=== PATIENT | female | born 1970 | race Caucasian/White ===

== ENCOUNTER 2018-11-29 17:00 | Emergency (ER) | payer OTHER ==
[~2018-11-29] VITALS: Ht 160 cm; Wt 90.0 kg
[~2018-11-29 17:00] MED LIST: CEPH-443 PO; IBUP-1542 PO; SULF1TAB31 PO
[2018-11-29 17:02] VITALS: Ht 160 cm; Wt 90.0 kg
[2018-11-29 19:00] VITALS: BP 139/83; PULSE 68; RESP 18
== END 2018-11-29 19:01 | disposition home or self-care (01) ==
LOC: FTE 17:00
DX: L72.9 Follicular cyst of the skin and subcutaneous tissue, unspecified (principal); I10 Essential (primary) hypertension; E11.9 Type 2 diabetes mellitus without complications; L08.9 Local infection of the skin and subcutaneous tissue, unspecified
CPT/HCPCS: 99283

== ENCOUNTER 2018-12-04 19:08 | Emergency (ER) | payer OTHER ==
[~2018-12-04] VITALS: Ht 160 cm; Wt 110.6 kg
[2018-12-04 19:31] VITALS: Ht 160 cm; Wt 110.6 kg
[2018-12-04] MEDS ORDERED: LIDOCAINE 1% (MPF) 5 ML VIAL INFIL ONE (21:00)
== END 2018-12-04 21:53 | disposition home or self-care (01) ==
LOC: FTE 19:08
DX: N76.4 Abscess of vulva (principal); I10 Essential (primary) hypertension
CPT/HCPCS: Z7502; Z7610; 99282

== ENCOUNTER 2018-12-16 12:11 | Emergency (ER) | payer OTHER ==
[~2018-12-16] VITALS: Wt 112.0 kg
[~2018-12-16 12:11] MED LIST changes: +APIX5TAB PO; +BENA10TA6 PO; +CYCL10TA7 PO; +LANT3I SC; +MED4DP PO; +METF500T24 PO; +METO-448 PO; +NAPR-985 PO
[2018-12-16 12:15] VITALS: BP 163/64; PULSE 84; RESP 18
[2018-12-16] MEDS ORDERED: KETOROLAC 60 MG INJ IM STA (12:42)
== END 2018-12-16 13:55 | disposition home or self-care (01) ==
LOC: FTE 12:11
DX: M62.838 Other muscle spasm (principal); I10 Essential (primary) hypertension; E11.9 Type 2 diabetes mellitus without complications
CPT/HCPCS: 71045; 81003; 93005; 96372; J1885; Z7502